=== PATIENT | female | born 2005 | race Caucasian/White ===

== ENCOUNTER 2025-07-30 10:00 | Emergency (ER) | payer OTHER ==
[~2025-07-30] VITALS: Ht 170.2 cm; Wt 69.4 kg
[2025-07-30] MEDS ORDERED: ONDANSETRON HCL/PF 4 MG/2 ML VIAL ONE ×2 (10:23→12:23)
[2025-07-30] MEDS ORDERED: MORPHINE SULFATE INJ 4 MG/ML DISP.SYRIN ONE (10:24)
[2025-07-30] MEDS ORDERED: MORPHINE SULFATE INJ 2 MG/ML DISP.SYRIN IV ONE (10:30)
[2025-07-30] MEDS: IV NS 0.9% 500 ML BAG IV ONE (10:33)
[2025-07-30] MEDS: ONDANSETRON HCL/PF 4 MG/2 ML VIAL IVP ONE (10:33)
[2025-07-30] MEDS ORDERED: HYDROMORPHONE 1 MG/1 ML DISP.SYRIN ONE ×2 (10:37→11:06)
[2025-07-30] MEDS: HYDROMORPHONE 1 MG/1 ML DISP.SYRIN IV ONE ×2 (10:41→11:10)
[2025-07-30 10:49] LABS: PLATELET COUNT (AUTO) 271 K/uL (150-450); RED BLOOD CELL COUNT(AUTO) 4.95 MIL/uL (4.0-5.2); RED CELL DISTRIBUTION WIDTH 13.3 % (11.5-15.0); WHITE BLOOD COUNT (AUTO) 7.1 K/uL (4.3-11.0)
[2025-07-30 10:57] LABS: CALCIUM, SERUM 9.3 mg/dL (8.5-10.1); CREATININE 0.7 mg/dL (0.6-1.3); SODIUM SERUM 140.0 mmol/L (136-145); UREA NITROGEN, BLOOD 13.0 mg/dL (7-18)
[2025-07-30] MEDS ORDERED: IV NS 0.9% 250 ML IV ONE (11:18)
[2025-07-30] MEDS ORDERED: CT SWABBABLE VALVE TRANS SET 1 EA INFUS.SET MC ONE (11:18)
[2025-07-30] MEDS ORDERED: IOHEXOL-350 100 ML VIAL IV ONE (11:18)
[2025-07-30] MEDS: ONDANSETRON HCL/PF 4 MG/2 ML VIAL IV ONE (12:29)
[2025-07-30] MEDS ORDERED: LORAZEPAM INJ 2 MG/ML VIAL ONE (13:23)
[2025-07-30] MEDS: LORAZEPAM INJ 2 MG/ML VIAL IV ONE (13:26)
[2025-07-30] MEDS ORDERED: METOCLOPRAMIDE HCL 10 MG/2 ML VIAL ONE (15:00)
[2025-07-30] MEDS: METOCLOPRAMIDE HCL 10 MG/2 ML VIAL IV ONE (15:02)
[2025-07-30 18:00] VITALS: BP 107/59; TEMP 98.2; O2SAT 97
== END 2025-07-30 18:06 | disposition short-term general hospital (02) ==
LOC: EDBD 10:05 → ER 10:05
DX: M54.2 Cervicalgia (principal); R11.0 Nausea; R20.0 Anesthesia of skin; R20.2 Paresthesia of skin; R53.1 Weakness; F17.200 Nicotine dependence, unspecified, uncomplicated; F20.9 Schizophrenia, unspecified; Z87.820 Personal history of traumatic brain injury; Z88.0 Allergy status to penicillin
CPT/HCPCS: 99285; 72125; 96374; 96375; 96361; 70498; 85025; 80048; 36415; 96376; L0172; J2060; J2765; J2405 ×2; J7050; J7040; Q9967; J1171 ×2; J2270